=== PATIENT | male | born 1955 | race Caucasian/White ===

== ENCOUNTER 2017-09-04 09:03 | Emergency (ER) | payer OTHER ==
[2017-09-04 09:26] VITALS: BP 137/81; PULSE 52; TEMP 98.9; BMI 23.6
--- NOTE | 2017-09-04 09:36 | PDOC ---
History of Present Illness - General Chief Complaint: Redness To Affected Area Stated Complaint: LEFT EYELID REDNESS Time Seen by Provider: 09/04/17 09:07 - History of Present Illness Initial Comments: 09/04/17 09:29 62 M with h/o HTN presents to ED with L eyelid swelling and pain. Pt states that it started yesterday with slight redness to the eyelid. He went to urgent care and was prescribed Doxycycline PO. Today, pt woke up and saw that his eyelid had become more inflamed and came to ED for evaluation. Pt denies any blurred vision. Denies any pain inside the eye or pain with EOM. Denies F/C. Denies any purulent drainage or bleeding. Pt does not wear contact lenses. Denies foreign body sensation, denies any injury to the eye. Past History - Past Medical History Allergies/Adverse Reactions: Allergies Allergy/AdvReac Type Severity Reaction Status Date / Time No Known Allergies Allergy Verified 09/04/17 09:13 Home Medications: Ambulatory Orders Amlodipine Besylate [Norvasc -] 5 mg PO DAILY 09/04/17 Doxycycline Hyclate 100 mg PO BID 09/04/17 Hydrochlorothiazide [Hctz -] 25 mg PO DAILY 09/04/17 Metoprolol Tartrate [Lopressor -] 25 mg PO DAILY 09/04/17 Multivit-Min/FA/Lycopen/Lutein [Centrum Silver Men Tablet] 1 each PO DAILY 09/04 COPD: No HTN: Yes - Surgical History Appendectomy: Yes (IN CHILDHOOD) - Suicide/Smoking/Psychosocial Hx Smoking History: Never smoked Hx Alcohol Use: Yes (SOCIAL) Drug/Substance Use Hx: No Substance Use Type: None Review of Systems - Review of Systems Comments:: 09/04/17 09:31 "GENERAL/CONSTITUTIONAL: No fever or chills. No weakness. HEAD, EYES, EARS, NOSE AND THROAT: + L eyelid swelling, No change in vision. No ear pain or discharge. No sore throat. CARDIOVASCULAR: No chest pain or shortness of breath. RESPIRATORY: No cough, wheezing, or hemoptysis. GASTROINTESTINAL: No nausea, vomiting, diarrhea or constipation. GENITOURINARY: No dysuria, frequency, or change in urination. MUSCULOSKELETAL: No joint or muscle swelling or pain. No neck or back pain. SKIN: No rash NEUROLOGIC: No headache, vertigo, loss of consciousness, or change in strength/ sensation. ENDOCRINE: No increased thirst. No abnormal weight change. HEMATOLOGIC/LYMPHATIC: No anemia, easy bleeding, or history of blood clots. ALLERGIC/IMMUNOLOGIC: No hives or skin allergy. " *Physical Exam - Vital Signs Last Vital Signs Temp Pulse Resp BP Pulse Ox 98.9 F 52 L 15 137/81 98 09/04/17 09:05 09/04/17 09:05 09/04/17 09:05 09/04/17 09:05 09/04/17 09:05 - Physical Exam Comments: 09/04/17 09:31 "GENERAL: Awake, alert, and fully oriented, in no acute distress. HEAD: No signs of trauma EYES: + L eyelid erythema and edema, no pustules or vesicles, no pain with EOM, visual acuity normal bilaterally, PERRLA, EOMI, sclera anicteric, conjunctiva clear ENT: Auricles normal inspection, hearing grossly normal, nares patent, oropharynx clear without exudates. Moist mucosa NECK: Nontender, no stepoffs, Normal ROM, supple, no lymphadenopathy, JVD, or masses LUNGS: Breath sounds equal, clear to auscultation bilaterally. No wheezes, and no crackles HEART: Regular rate and rhythm, normal S1 and S2, no murmurs, rubs or gallops ABDOMEN: Soft, nontender, normoactive bowel sounds. No guarding, no rebound. No masses EXTREMITIES: Normal range of motion, no edema. No clubbing or cyanosis. No cords, erythema, or tenderness NEUROLOGICAL: Cranial nerves II through XII intact. 5/5 strength and sensation in all extremities, Normal speech, normal gait, normal cerebellar function SKIN: Warm, Dry, normal turgor, no rashes or lesions noted. " Medical Decision Making - Medical Decision Making 09/04/17 09:32 62 M with L eyelid swelling and pain. Likely blepharitis vs hordeolum. Pt with no evidence of orbital cellulitis - VA intact, conjunctiva clear, EOMI without pain. Pt also without signs of preseptal cellulitis. - DC Doxy - Topical abx - F/u eye clinic Pt is well appearing, with normal vitals. Clinically stable for DC at this time. I discussed the physical exam findings, ancillary test results and final diagnoses with the patient. I answered all of the patient's questions. The patient was satisfied with the care received and felt comfortable with the discharge plan and treatment plan. The patient agrees to follow up with the primary care physician within 24-72 hours. *DC/Admit/Observation/Transfer Diagnosis at time of Disposition: Blepharitis of eyelid of left eye - Discharge Dispostion Disposition: HOME Condition at time of disposition: Good - Referrals Referrals: Fern Saucedo [Primary Care Provider] - Joseph San MD [Staff Physician] - - Patient Instructions Printed Discharge Instructions: DI for Blepharitis Additional Instructions: You have blepharitis. Treat it according to the following instructions: 1. Put warm, wet pressure on your eyes Wet a clean wash cloth with warm (not scalding hot) water and put it over your eyes. When the wash cloth cools, reheat it with warm water and put it back over your eyes. Repeat these steps for 5 minutes, 2 to 4 times a day. 2. Gently rub your eyelids Do this right after putting warm, wet pressure on your eyes. Use the washcloth or a clean fingertip to gently rub your eyelid in small circles. 3. Wash your eyelids Use plain warm water or warm water with a drop of baby shampoo on a clean washcloth, gauze pad, or cotton swab. Gently clean any crusty material off the eyelashes and eyelids. Do not rub hard or you can cause more irritation. You can also use [id number] eyelid scrubs and pads. 4. Apply the antibiotic ointment once daily at night before bed. Apply it directly to your eye lid margin. Follow up with an hogshead head matcher in 2 days (Wednesday) for further evaluation. If you experience worsening redness, swelling, pain, blurred vision, fevers, or any other concerning symptoms, return to the ER immediately. - Post Discharge Activity - Attestations Physician Attestion: 09/04/17 09:39 I, Dr. Reji Mcgrath MD, attest that this document has been prepared under my direction and personally reviewed by me in its entirety. I further attest, that it accurately reflects all work, treatment, procedures and medical decision -making performed by me.
== END 2017-09-04 09:43 | disposition home or self-care (01) ==
LOC: FER 09:03
DX: H01.006 Unspecified blepharitis left eye, unspecified eyelid (principal); I10 Essential (primary) hypertension; Z79.84 Long term (current) use of oral hypoglycemic drugs
CPT/HCPCS: 99281-25